=== PATIENT | male | born 1970 | race Caucasian/White ===

== ENCOUNTER 2019-03-05 13:55 | Emergency (ER) | payer BC, OTHER ==
[2019-03-05] MEDS ORDERED: SODIUM CHLORIDE 1,000 ML IV ONE (14:06)
[2019-03-05 14:12] VITALS: PULSE 82; TEMP 98.8; BMI 26.6
--- NOTE | 2019-03-05 14:22 | PDOC ---
History of Present Illness - General Chief Complaint: Diarrhea Stated Complaint: DIARRHEA Time Seen by Provider: 03/05/19 14:06 History Source: Patient Exam Limitations: No Limitations - History of Present Illness Travel History: No Initial Comments: 03/05/19 14:17 48y M no pmhx presents with complaint of not feeling well. States he was having diarrhea x 1 week, associated with subjective fever. The diarrhea was watery without blood/melena. He had gone to see urgent care and was started on a BRAT diet. He notse gradual improvement in the subsequent days, but today was again not feeling well, with concern he may be dehydrated. He had a nromal formed BM the past day, but another episode of loose stool this mroning as well as some urinar frequency. He denies any current fever/chlls, nausea/vomiting, chest pain , diarrhea, melena, bpr, dysuria. No recent travel or sick contacts. No recent med changes or abx Past History - Past Medical History Allergies/Adverse Reactions: Allergies Allergy/AdvReac Type Severity Reaction Status Date / Time No Known Allergies Allergy Verified 03/05/19 14:05 Home Medications: Ambulatory Orders Telmisartan [Micardis] 40 mg PO HS 03/05/19 COPD: No HTN: Yes - Suicide/Smoking/Psychosocial Hx Smoking History: Never smoked Hx Alcohol Use: Yes (DAILY) Drug/Substance Use Hx: No Review of Systems - Review of Systems Able to Perform ROS?: Yes Comments:: 03/05/19 14:19 Constitutional - +malaise, subjective Fever, Chills (1st day) HEENT: no reported vision changes, sore throat Respiratory: no reported cough, sob, hemoptysis Cardiac: no reported chest pain, palpitations, light headedness, leg swelling Abd/GI: + vomiting (1x on 1st day, resolved), diarrhea no reported abd pain, nausea, blood per rectum, melena : +frequency no reported dysuria, discharge Musculskelatal - no reported back pain, joint swelling skin - no reported bruising, erythema, rash neurological: no reported headache, numbness, focal weakness, tingling, ataxia, hematologic: no reported easy bruising, easy bleeding *Physical Exam - Vital Signs Last Vital Signs Temp Pulse Resp BP Pulse Ox 98.8 F 82 16 180/118 H 100 03/05/19 14:04 03/05/19 14:04 03/05/19 14:04 03/05/19 14:04 03/05/19 14:04 - Physical Exam Comments: 03/05/19 14:21 GENERAL: The patient is awake, alert, and fully oriented, Nontoxic - in no acute distress. HEAD: Normocephalic, atraumatic. EYES: extraocular movements intact, sclera anicteric, conjunctiva clear. ENT: Normal voice, Moist mucous membranes. NECK: Normal range of motion, supple LUNGS: Breath sounds equal, clear to auscultation bilaterally. No wheezes, no rhonchi, no rales. HEART: Regular rate and rhythm, normal S1 and S2 without murmur, rub or gallop. ABDOMEN: Soft, nontender, normoactive bowel sounds. No guarding, no rebound. . No CVA tenderness EXTREMITIES: Normal range of motion, no edema. No clubbing or cyanosis. No cords, erythema, or tenderness. NEUROLOGICAL: No facial assymetry, Normal speech, PSYCH: Normal mood, normal affect. SKIN: Warm, Dry, normal turgor, ED Treatment Course - LABORATORY CBC & Chemistry Diagram: 03/05/19 14:30 03/05/19 14:30 Medical Decision Making - Medical Decision Making 03/05/19 14:21 will ck ua to r/o uti will ck basic labs to r/o metabolic dernagement abd soft nontender without signs of localized or generalized peritonitis suspect possible viral dirrhea 03/05/19 15:01 pts labs reviewed unremarkble wit hnormal lytes no signs of JULIA pt feeling better will dc with pmd fu return precautions were discussed *DC/Admit/Observation/Transfer Diagnosis at time of Disposition: Malaise Diarrhea Qualifiers: Diarrhea type: unspecified type Qualified Code(s): R19.7 - Diarrhea, unspecified - Discharge Dispostion Disposition: HOME Condition at time of disposition: Improved Decision to Admit order: No - Referrals Referrals: Ramez Ferrera MD [Primary Care Provider] - - Patient Instructions Printed Discharge Instructions: DI for Diarrhea and Traveler's Diarrhea -- Adult Additional Instructions: Return to the emergency department immediately with ANY new, persistent or worsening symptoms including worsening abdominal pain, fevers, inability to tolerate oral intake, chest pain, shortness of breath or any other concerns. Stay well hydrated. You MUST call and follow up with your doctor tomorrow. Your emergency department visit is not complete without a followup with your doctor for reevaluation. Please make sure your doctor reviews the results of your emergency evaluation. Print Language: TURKMEN - Post Discharge Activity
[2019-03-05 14:44] LABS: BASO % 1.4 % (0-2.0); EOS % 2.2 % (0-4.5); HEMATOCRIT 44.5 % (35.4-49); LYMPH % 26.9 % (8-40); MCHC 33.8 g/dl (32.0-35.9); MEAN CELL VOLUME 91.7 fl (80-96); MEAN PLT VOLUME 7.7 fl (7.5-11.1); MONO % 14.3 % (3.8-10.2); NEUT % 55.2 % (42.8-82.8); PLATELET COUNT 363 K/MM3 (134-434); RBC 4.86 M/mm3 (4.00-5.60); RDW 11.8 % (11.9-15.9); WHITE BLOOD COUNT 6.3 K/mm3 (4.0-10.8)
[2019-03-05 14:47] VITALS: BP 146/98
[2019-03-05 14:52] LABS: ALBUMIN 3.9 g/dl (3.4-5.0); ALK PHOS 56 U/L (45-117); ANION GAP 9 MMOL/L (8-16); BILIRUBIN,TOTAL 0.8 mg/dl (0.2-1); BLOOD UREA NITROGEN 9 mg/dl (7-18); CALCIUM 8.7 mg/dl (8.5-10); CHLORIDE 99 mmol/L (98-107); CO2 25 mmol/L (21-32); CREATININE 0.9 mg/dl (0.55-1.3); GLUCOSE,RANDOM 121 mg/dl (74-106); MAGNESIUM 2.1 mg/dL (1.8-2.4); POTASSIUM 3.7 mmol/L (3.5-5.1); SGOT/AST 28 U/L (15-37); SGPT/ALT 27 U/L (13-61); SODIUM 133 mmol/L (136-145); TOT PROT 7.1 g/dl (6.4-8.2)
--- NOTE | 2019-03-06 10:00 | EKG ---
Test Reason : Blood Pressure : / mmHG Vent. Rate : 071 BPM Atrial Rate : 071 BPM P-R Int : 144 ms QRS Dur : 090 ms QT Int : 386 ms P-R-T Axes : 039 -17 019 degrees QTc Int : 419 ms NORMAL SINUS RHYTHM NORMAL ECG NO PREVIOUS ECGS AVAILABLE Confirmed by ALEKSANDR OTERO MD ([id number]) on 03/06/2019 10:00:31 AM Referred By: TAMARA GAMEZ Confirmed By:ALEKSANDR OTERO MD
== END 2019-03-05 15:32 | disposition home or self-care (01) ==
LOC: SUPCPDRO 13:55 → FER 13:55
PROC: 3E0337Z Introduction of Electrolytic and Water Balance Substance into Peripheral Vein, Percutaneous Approach (ICD-10-PCS; principal; 2019-03-05)
DX: R53.81 Other malaise (principal); R19.7 Diarrhea, unspecified
CPT/HCPCS: 36415; 80053; 81003; 83735; 85025; 93005; 99283-25; J7030

== ENCOUNTER 2019-04-10 13:24 | Emergency (ER) | payer OTHER | END 2019-04-10 16:42 | disposition home or self-care (01) | LOC: JER 13:24 ==

== ENCOUNTER 2019-04-13 13:02 | Emergency (ER) | payer OTHER | END 2019-04-13 14:31 | disposition home or self-care (01) | LOC: FER 13:02 ==

== ENCOUNTER 2019-06-06 10:37 | Emergency (ER) | payer OTHER ==
[2019-06-06 11:03] VITALS: TEMP 98.1; BMI 24.7
[2019-06-06] MEDS ORDERED: ASPIRIN 81 MG CHEWABLE TABLETS PO ONE (11:19)
[2019-06-06] MEDS ORDERED: ASPIRIN 81 MG CHEWABLE TABLETS ONE (11:23)
[2019-06-06 11:54] LABS: BASO % 0.5 % (0-2.0); EOS % 1.3 % (0-4.5); HEMATOCRIT 47.1 % (35.4-49); LYMPH % 11.8 % (8-40); MCH 31.1 pg (25.7-33.7); MCHC 33.9 g/dl (32.0-35.9); MEAN CELL VOLUME 91.6 fl (80-96); MEAN PLT VOLUME 7.9 fl (7.5-11.1); MONO % 11.4 % (3.8-10.2); PLATELET COUNT 340 K/MM3 (134-434); RBC 5.14 M/mm3 (4.00-5.60); RDW 12.7 % (11.9-15.9); WHITE BLOOD COUNT 9.5 K/mm3 (4.0-10.8)
[2019-06-06 12:02] LABS: ALBUMIN 3.9 g/dl (3.4-5.0); BILIRUBIN,TOTAL 0.5 mg/dl (0.2-1); CREATININE 0.9 mg/dl (0.55-1.3); POTASSIUM 3.9 mmol/L (3.5-5.1)
--- NOTE | 2019-06-06 12:33 | PDOC ---
History of Present Illness - General Chief Complaint: Chest Pain Stated Complaint: TIGHTNESS TO CHEST 2 DAYS AND SHAKING TO LEGS Time Seen by Provider: 06/06/19 10:44 History Source: Patient Exam Limitations: No Limitations - History of Present Illness Initial Comments: 06/06/19 12:28 48-year-old male history of hypertension and congenital nystagmus and anxiety here today complaining of intermittent chest pain. Patient states he has had the symptoms were intermittent tightness lasting only 30 seconds to 1 minute time resolve spontaneously. Has been happening off and on for the last few weeks. Patient states he was recently evaluated by both his human intelligence and his PCP and did have a exercise stress test done 2 weeks ago which was reportedly normal. He has also had a recent echo which was normal. Denies any history of PE or DVT. Denies any recent leg swelling no recent travel. When he gets episodes chest pain he does intermittently get episodes of feeling short of breath or lightheaded and nausea. No family history of premature cardiac disease does have a family history of hypertension in his maternal grandmother. Patient was recently seen by his PCP and had his BP medication increased Past History - Past Medical History Allergies/Adverse Reactions: Allergies Allergy/AdvReac Type Severity Reaction Status Date / Time No Known Allergies Allergy Verified 06/06/19 10:40 Home Medications: Ambulatory Orders Telmisartan/Hydrochlorothiazid [Telmisartan-Hctz 80-12.5 mg Tb] 1 tab PO DAILY 06/06/19 COPD: No HTN: Yes - Suicide/Smoking/Psychosocial Hx Smoking History: Former smoker Have you smoked in the past 12 months: No If you are a former smoker, when did you quit?: 1997 Information on smoking cessation initiated: No Hx Alcohol Use: Yes (social) Drug/Substance Use Hx: No Review of Systems - Review of Systems Constitutional: No: Chills, Diaphoresis HEENTM: No: Eye Pain, Blurred Vision Respiratory: No: Cough, Orthopnea Cardiac (ROS): Yes: Chest Pain. No: Edema ABD/GI: Yes: Nausea : No: Burning, Dysuria Musculoskeletal: No: Gout Integumentary: No: Bruising, Change in Color Neurological: No: Headache, Numbness All Other Systems: Reviewed and Negative *Physical Exam - Vital Signs Last Vital Signs Temp Pulse Resp BP Pulse Ox 98.1 F 88 16 145/96 98 07/23/19 10:40 06/06/19 11:05 06/06/19 11:05 06/06/19 11:05 06/06/19 11:05 - Physical Exam Comments: 06/06/19 12:31 Awake alert no acute distress. Does have noted nystagmus which is chronic. Lungs are clear bilaterally. Heart is regular without any murmurs rubs or gallops. Abdomen is soft and nontender. Extremities are warm and well-perfused. No appreciated peripheral edema. Symmetric 2+ DP and radial pulses. Neurologically patient is alert and oriented 3. Heart Score/ECG Review - History History: Moderately suspicious - Electrocardiogram EKG: Normal - Age Age: 45-65 - Risk Factors Risk Factors Heart Score: Yes Hx Hypertension Based on the list above the patient has:: 1-2 risk factors - Troponin Troponin: </= normal limit - Score Heart Score - Total: 3 #1 General ECG Interpretation: Sinus Rhythm, Normal Rate (79), Normal Intervals, No acute ischemic changes Compared to previous ECG there are: Other (ocassional PVC) ED Treatment Course - LABORATORY CBC & Chemistry Diagram: 06/06/19 11:28 06/06/19 11:21 - ADDITIONAL ORDERS Additional order review: Laboratory Results 06/06/19 06/06/19 11:21 11:21 Sodium 132 L Potassium 3.9 Chloride 99 Carbon Dioxide 27 Anion Gap 6 L BUN 8.0 Creatinine 0.9 Est GFR (CKD-EPI)AfAm 115.02 Est GFR (CKD-EPI)NonAf 99.24 Random Glucose 109 H Calcium 9.0 Total Bilirubin 0.5 AST 20 ALT 15 Alkaline Phosphatase 56 Troponin I < 0.03 Total Protein 7.0 Albumin 3.9 06/06/19 11:28 RBC 5.14 MCV 91.6 MCHC 33.9 RDW 12.7 MPV 7.9 Neutrophils % 75.0 Lymphocytes % 11.8 D Monocytes % 11.4 H Eosinophils % 1.3 Basophils % 0.5 - RADIOLOGY Radiology Studies Ordered: Category Date Time Status CHEST PA & LAT [RAD] Stat Radiology 06/06/19 11:19 Taken - Medications Given in the ED: ED Medications Discontinued Medications Generic Name Dose Route Start Last Admin Trade Name Freq PRN Reason Stop Dose Admin Aspirin 162 mg 06/06/19 11:19 06/06/19 11:24 Asa - PO 06/06/19 11:20 162 mg ONCE ONE Administration Medical Decision Making - Medical Decision Making 06/06/19 12:31 48-year-old male here with a history of hypertension anxiety and nystagmus complaining of intermittent chest pain. Patient does have a recent negative cardiac workup which is very [place]. At this point will obtain CBC CMP troponin EKG to rule out any underlying undiagnosed IN. We'll also obtain chest x-ray to rule out other causes of chest pain such as infection or mass. Will discuss plan of care with the patient's human intelligence may require a short-term observation of 3 hour repeat troponin if negative likely DC home with close follow-up. pt has no risk factor for PE, PeRC negative 06/06/19 14:40 pt troponoin negative x 2. ekg normal. cxr negative. recent stress will dc home. called pt human intelligence Devan Triana [phone]. awaiting call back *DC/Admit/Observation/Transfer Diagnosis at time of Disposition: Chest pain - Discharge Dispostion Disposition: HOME Condition at time of disposition: Improved Decision to Admit order: No - Referrals Referrals: Ramez Ferrera MD [Primary Care Provider] - - Patient Instructions Printed Discharge Instructions: DI for Atypical Chest Pain Additional Instructions: your labs are negative for acute heart attack. your ekg is normal, your chest xray is negative. and your labs are otherwise normal. you should follow up with your cardiologst. call Dr Triana to schedule Dr Triana, . return for any problems or concerns. you should also follow up with your primary medical doctor. - Post Discharge Activity
[2019-06-06 14:10] VITALS: BP 154/104; PULSE 72
--- NOTE | 2019-06-06 15:19 | EKG ---
Test Reason : Blood Pressure : / mmHG Vent. Rate : 079 BPM Atrial Rate : 079 BPM P-R Int : 148 ms QRS Dur : 094 ms QT Int : 376 ms P-R-T Axes : 064 010 041 degrees QTc Int : 431 ms SINUS RHYTHM WITH OCCASIONAL PREMATURE VENTRICULAR COMPLEXES OTHERWISE NORMAL ECG WHEN COMPARED WITH ECG OF 13-APR-2019 13:30, PREMATURE VENTRICULAR COMPLEXES ARE NOW PRESENT Confirmed by MD Jose, Arnulfo ([id number]) on 06/06/2019 3:18:34 PM Referred By: FRANKLIN DE LA VEGA Confirmed By:Arnulfo Garcia MD
== END 2019-06-06 14:51 | disposition home or self-care (01) ==
LOC: FER 10:37
DX: R07.9 Chest pain, unspecified (principal); I10 Essential (primary) hypertension; F41.9 Anxiety disorder, unspecified
CPT/HCPCS: 36415; 71046-TC-FY; 80053; 84484; 85025; 93005; 99284-25

== ENCOUNTER 2020-01-15 07:48 | Day surgery (SDC) | payer OTHER ==
[2020-01-11 17:55] VITALS: BMI 25.0
[2020-01-15] MEDS ORDERED: PROPOFOL 20 ML ONE ×3 (08:37→08:59)
[2020-01-15 09:03] VITALS: TEMP 97.7
[2020-01-15 09:14] VITALS: BP 117/67; PULSE 70
--- NOTE | 2020-01-17 14:17 | PATH ---
Surgical Pathology Report Patient Name: [facility] Med. Rec. #: [id number] /Age/Gender: 1970 (Age: 49) / M Account: [id number] Location: [facility] Taken: 01/15/2020 Received: 01/15/2020 Reported: 01/17/2020 Physicians: Joey Bailey M.D. Specimen(s) Received A: BX POLYP HEPATIC FLEXURE B: BX POLYP LEFT COLON Clinical History Screening Postoperative diagnosis: Colon polyps, diverticulosis Final Diagnosis A. HEPATIC FLEXURE POLYP, POLYPECTOMY: POLYPOID COLONIC MUCOSA WITH REACTIVE LYMPHOID FOLLICLE IN THE LAMINA PROPRIA. B. LEFT COLON POLYP, POLYPECTOMY: TUBULAR ADENOMA. Electronically Signed Tasha Varghese M.D. Gross Description A. Received in formalin, labeled "biopsy polyp hepatic flexure" is a love, irregular portion of soft tissue measuring 0.1 cm. in greatest dimension. The specimen is submitted in toto in one cassette. B. Received in formalin, labeled "biopsy polyp left colon" is a love, irregular portion of soft tissue measuring 0.5 cm. in greatest dimension. The specimen is submitted in toto in one cassette. DL/01/16/2020 saudi01/16/2020
== END 2020-01-15 09:35 | disposition home or self-care (01) ==
LOC: FASU-ENDO 07:48
PROVIDERS: ATTEND Internal Medicine Gastroenterology
PROC: 0DBL8ZX Excision of Transverse Colon, Via Natural or Artificial Opening Endoscopic, Diagnostic (ICD-10-PCS; 2020-01-15)
PROC: 0DBM8ZX Excision of Descending Colon, Via Natural or Artificial Opening Endoscopic, Diagnostic (ICD-10-PCS; principal; 2020-01-15 08:31)
DX: Z12.11 Encounter for screening for malignant neoplasm of colon (principal); D12.3 Benign neoplasm of transverse colon; D12.4 Benign neoplasm of descending colon; K57.30 Diverticulosis of large intestine without perforation or abscess without bleeding
CPT/HCPCS: 88305-TC

== ENCOUNTER 2024-02-01 05:10 | Day surgery (SDC) | payer OTHER ==
[2024-01-20 19:11] VITALS: BMI 26.5
[2024-02-01] MEDS ORDERED: HEPARIN NA (PORCINE) 5,000 UNITS/ML 1ML VIAL ONE (07:02)
[2024-02-01] MEDS ORDERED: BUPIVACAINE HCL/PF 0.25% (2.5MG/ML) 10 ML VIAL ONE (07:02)
[2024-02-01] MEDS ORDERED: LACTATED RINGERS SOLUTION 1,000 ML IV SCH (07:15)
[2024-02-01] MEDS ORDERED: ONDANSETRON 4 MG/2 ML VIAL IVPUSH PRN (07:16)
[2024-02-01] MEDS ORDERED: PROMETHAZINE HCL 25 MG/1 ML VIAL IVPB PRN (07:16)
[2024-02-01] MEDS: ceFAZolin SODIUM 1 GM VIAL IVPB ONE ×2 (07:19→08:09)
[2024-02-01] MEDS ORDERED: DEXAMETHASONE SOD PHOSPHATE 4 MG/1 ML VIAL ONE (07:23)
[2024-02-01] MEDS ORDERED: FENTANYL CITRATE/PF 50 MCG/ML VIAL ONE ×3 (07:23→12:29)
[2024-02-01] MEDS ORDERED: PROPOFOL 80 ML ONE (07:24)
[2024-02-01] MEDS ORDERED: MIDAZOLAM HCL 2 MG/2 ML SINGLE DOSE VIAL ONE (07:24)
[2024-02-01] MEDS ORDERED: ROCURONIUM BROMIDE 50 MG/5 ML SYRINGE ONE (07:24)
[2024-02-01] MEDS ORDERED: SUCCINYLCHOLINE CHLORIDE 200 MG/10 ML SYRINGE ONE (07:24)
[2024-02-01] MEDS: BUPIVACAINE HCL/PF 0.25% (2.5MG/ML) 10 ML VIAL IJ ONE ×2 (07:47→08:22)
[2024-02-01] MEDS ORDERED: NEOSTIGMINE METHYLSULFATE 0.5 MG/1 ML - 10 ML MDV ONE (10:59)
[2024-02-01] MEDS: oxyCODONE HCL 5 MG TABLET PO ONE (14:00)
[2024-02-01] MEDS ORDERED: oxyCODONE HCL 5 MG TABLET ONE (14:02)
[2024-02-01] MEDS ORDERED: oxyCODONE HCL 5 MG TABLET PO PRN (14:09)
[2024-02-01 14:51] VITALS: RESP 20
[2024-02-01 17:39] VITALS: BP 147/91; PULSE 86; TEMP 98.2
== END 2024-02-01 17:55 | disposition home or self-care (01) ==
LOC: JASU-SURG 05:10
PROVIDERS: ATTEND Surgery
PROC: 8E0W4CZ Robotic Assisted Procedure of Trunk Region, Percutaneous Endoscopic Approach (ICD-10-PCS; 2024-02-01)
PROC: 0WPF4JZ Removal of Synthetic Substitute from Abdominal Wall, Percutaneous Endoscopic Approach (ICD-10-PCS; 2024-02-01)
PROC: 0YUA4JZ Supplement Bilateral Inguinal Region with Synthetic Substitute, Percutaneous Endoscopic Approach (ICD-10-PCS; principal; 2024-02-01 08:00)
DX: K40.21 Bilateral inguinal hernia, without obstruction or gangrene, recurrent (principal)
CPT/HCPCS: 49651; S2900; 86850; 86900; 86901; 88304-TC; 94760; C1781; J1644